=== PATIENT | female | born 1980 | race American Indian/Alaskan Native ===

== ENCOUNTER 2018-01-20 21:29 | Inpatient (IN) | payer OTHER ==
[2018-01-20] MEDS ORDERED: SUBLIMAZE IV PRN (22:54)
[2018-01-20] MEDS ORDERED: STADOL IV PRN (22:54)
[2018-01-20] MEDS ORDERED: LACTATED RINGERS 1,000 ML IV SCH ×2 (23:00→23:45)
[2018-01-20 23:10] LABS: Hemoglobin 12.3 gm/dl (10.1-14.3); Mean Corpuscular HGB Conc 34 % (30-34); Mean Corpuscular Hemoglobin 32 pg (28-32); Mean Corpuscular Volume 94 fl (79-97); Platelet Count 190 K/mm3 (140-440); Red Blood Count 3.85 M/mm3 (3.65-5.03); Red Cell Distribution Width 13.9 % (13.2-15.2)
[2018-01-20] MEDS ORDERED: ePHEDrine SULFATE IV PRN (23:37)
[2018-01-20] MEDS ORDERED: POLYCILLIN/NS 2 GM/100 ML 2 GM/100 ML BAG IV ONE (23:37)
[2018-01-20] MEDS ORDERED: XYLOCAINE 2% INFILTRATI ONE (23:37)
[2018-01-20] MEDS ORDERED: BRETHINE IVP PRN (23:37)
[2018-01-20] MEDS ORDERED: MINERAL OIL PO PRN (23:37)
[2018-01-20] MEDS ORDERED: BRETHINE SUB-Q PRN (23:37)
[2018-01-20] MEDS ORDERED: ZOFRAN IV PRN (23:37)
[2018-01-20] MEDS ORDERED: PITOCin/NS 30 UNIT/500ML 30 UNITS/500 ML BAG IV SCH ×2 (23:45)
[2018-01-20] MEDS ORDERED: PITOCin/NS 20 UNIT/1000ML DRIP 20 UNITS/1,000 ML BAG IV SCH (23:45)
--- NOTE | 2018-01-20 23:45 | History and Physical Report ---
History of Present Illness Date of examination: 01/20/18 Date of admission: 01/20/18 22:54 Chief complaint: SROM History of present illness: Pt is a 37yo BF EDC 01/30/18; EGA 38 4/7 weeks presents to L&D complaining of SROM clear fluid followed by irregular contractions. She received care at [facility], and course significant for cervical cerclage removal 5 days ago, however records are not available and GBS is unknown. Past History Past Medical History: no pertinent history Past Surgical History: no surgical history Social history: no significant social history, - Obstetrical History Expected Date of Delivery: 01/30/18 Actual Gestation: 38 Week(s) 5 Day(s) : 3 Medications and Allergies Allergies Allergy/AdvReac Type Severity Reaction Status Date / Time No Known Allergies Allergy Verified 01/20/18 22:57 Home Medications Medication Instructions Recorded Confirmed Last Taken Type No Known Home Medications [No 01/21/18 01/21/18 Unknown History Reported Home Medications] Active Meds: Active Medications Butorphanol Tartrate (Stadol) 2 mg IV Q2H PRN PRN Reason: Labor Pain Fentanyl (Sublimaze) 100 mcg IV Q2H PRN PRN Reason: Labor Pain Lactated Ringer's (Lactated Ringers) 1,000 mls @ 125 mls/hr IV DIRECT CHRISTOPHER Last Admin: 01/20/18 23:27 Dose: 125 mls/hr Review of Systems All systems: negative - Vital Signs Vital signs: Vital Signs Pulse BP 78 144/81 01/20/18 22:09 01/20/18 22:09 Temp Pulse Resp BP Pulse Ox 99.5 F 77 16 131/77 98 01/20/18 23:05 01/20/18 23:17 01/20/18 23:05 01/20/18 23:05 01/20/18 23:17 - Physical Exam Breasts: Positive: deferred Cardiovascular: Regular rate Lungs: Positive: Clear to auscultation Abdomen: Positive: normal appearance Genitourinary (Female): Positive: normal external genitalia Uterus: Positive: enlarged Anus/Rectum: Positive: normal perianal skin - Obstetrical FHR: category 1 Uterine Contraction Monitor Mode: External Cervical Dilatation: 1 (per nurse) Cervical Effacement Percentage: 50 (per nurse) station: -2 Uterine Contraction Pattern: Irregular Uterine Tone Measurement Phase: Contraction Uterine Contraction Intensity: Mild Results Result Diagrams: 01/20/18 22:40 All other labs normal. Assessment and Plan - Patient Problems (1) 38 weeks gestation of Onset Date: 01/20/18 Current Visit: Yes Status: Acute Plan to address problem: A: IUP @ 38 4/7 weeks PROM - stable Unknown GBS P: Admit to L&D for pitocin augmentation of labor IV Ampicillin Expectant vaginal delivery (2) PROM (premature rupture of membranes) Onset Date: 01/20/18 Current Visit: Yes Status: Acute Qualifiers: PROM onset of labor timing: onset of labor within 24 hours of rupture PROM gestational age: -third trimester Qualified Code(s): O42.013 - premature rupture of membranes, onset of labor within 24 hours of rupture, third trimester
[2018-01-20 23:51] LABS: Basophils % (Manual) 0 % (0.0-1.8); Eosinophils % (Manual) 0 % (0.0-4.3); Platelet Estimate Consistent w Auto; Total Cells Counted 100
[2018-01-21] MEDS ORDERED: AMPICILLIN/NS 1 GM/50 ML 1 GM/50 ML BAG IV SCH ×2 (04:00→08:00)
[2018-01-21] MEDS ORDERED: POLYCILLIN/NS 2 GM/100 ML 2 GM/100 ML BAG IV ONE ×2 (04:00)
[2018-01-21] MEDS ORDERED: XYLOCAINE 2% INFILTRATI ONE (06:30)
--- NOTE | 2018-01-21 06:45 | Procedure Note ---
OB Delivery Note - Delivery Date of Delivery: 01/21/18 Surgeon: KAROL TSE Estimated blood loss: 300cc - Vaginal Delivery presentation: vertex Delivery position: OA Intrapartum events: PROM->1hr before delivery, mult.variable deceleratio Delivery induction: none Delivery augmentation: pitocin Delivery monitor: external FHT, external uterine Route of delivery: Delivery placenta: spontaneous Delivery cord: nuchal cord, 3 umbilical vessels Episiotomy: none Delivery laceration: 1st degree, vaginal side wall Delivery repair: vicryl Anesthesia: local Delivery comments: Infant delivered OA and placed on Mom's chest for [id number] bonding and delayed cord clamping - Infant A at 1 minute: 7 at 5 minutes: 9 Infant Gender: Female (3136gms)
[2018-01-21] MEDS ORDERED: DULCOLAX PR PRN (06:51)
[2018-01-21] MEDS ORDERED: NORCO 5/325 PO PRN (06:51)
[2018-01-21] MEDS ORDERED: LANSINOH TP PRN (06:51)
[2018-01-21] MEDS ORDERED: PHENERGAN PR PRN (06:51)
[2018-01-21] MEDS ORDERED: BENADRYL PO PRN (06:51)
[2018-01-21] MEDS ORDERED: MILK OF MAGNESIA PO PRN (06:51)
[2018-01-21] MEDS ORDERED: PHENERGAN PO PRN (06:51)
[2018-01-21] MEDS ORDERED: TYLENOL PO PRN (06:51)
[2018-01-21] MEDS ORDERED: TUCKS PAD TP PRN (06:51)
[2018-01-21] MEDS ORDERED: ZOFRAN IV PRN (06:51)
[2018-01-21] MEDS ORDERED: SODIUM CHLORIDE FLUSH SYRINGE 10 ML IV NR (07:00)
[2018-01-21] MEDS ORDERED: PITOCin/NS 20 UNIT/1000ML DRIP 20 UNITS/1,000 ML BAG IV SCH (07:00)
[2018-01-21] MEDS: MOTRIN PO SCH ×3 (07:40→21:31)
[2018-01-21] MEDS: FEOSOL PO SCH ×2 (10:28→21:29)
[2018-01-21] MEDS: COLACE PO SCH ×2 (10:28→21:29)
[2018-01-21] MEDS: PRENATAL VITAMIN PO SCH (10:28)
[2018-01-21 19:40] LABS: Hematocrit 29.9 % (30.3-42.9); Hemoglobin 10.3 gm/dl (10.1-14.3)
[2018-01-22] MEDS ORDERED: M-M-R II VACCINE SUB-Q ONE (06:00)
[2018-01-22] MEDS ORDERED: BOOSTRIX IM ONE (06:00)
[2018-01-22] MEDS: MOTRIN PO SCH (06:22)
--- NOTE | 2018-01-22 08:05 | Progress Note ---
Assessment and Plan - Patient Problems (1) 38 weeks gestation of Onset Date: 01/20/18 Current Visit: Yes Status: Resolved (2) PROM (premature rupture of membranes) Onset Date: 01/20/18 Current Visit: Yes Status: Resolved Qualifiers: PROM onset of labor timing: onset of labor within 24 hours of rupture PROM gestational age: -third trimester Qualified Code(s): O42.013 - premature rupture of membranes, onset of labor within 24 hours of rupture, third trimester (3) (normal spontaneous vaginal delivery) Onset Date: 01/22/18 Current Visit: Yes Status: Resolved Plan to address problem: A: s/p - PPD #1 Doing well Asymptomatic anemia - stable P: Pt desires to go home today (4) Acute blood loss anemia Onset Date: 01/22/18 Current Visit: Yes Status: Resolved Subjective - Subjective Date of service: 01/22/18 Principal diagnosis: s/p - PPD #1 Interval history: Pt is feeling well without complaints. Bleeding improved. Patient reports: appetite normal, voiding normally, pain well controlled, flatus , ambulating normally, no dizzy ambulation, no nauseated [place]: doing well, nursing well, bottle feeding Objective - Vital Signs Latest vital signs: Vital Signs Temp Pulse Resp BP BP Pulse Ox 01/22/18 00:46 98.2 F 77 20 123/77 100 01/21/18 15:50 98.7 F 98 H 20 111/69 01/21/18 11:15 97.1 F L 86 20 117/75 01/21/18 08:40 20 01/21/18 08:30 98.3 F 85 20 118/76 100 Intake and Output 01/21/18 01/22/18 01/22/18 22:59 06:59 14:59 Intake Total 600 360 Output Total 400 Balance 200 360 Intake: Oral 600 360 Output: Urine 400 Void 400 Other: Total, Intake Amount 240 120 Total, Output Amount 400 # Voids Void 1 1 - Exam Breasts: Present: deferred Cardiovascular: Present: Regular rate Lungs: Present: Clear to auscultation Abdomen: Present: normal appearance, soft Uterus: Present: normal, firm, fundal height below umbilicus Extremities: Present: normal - Labs Labs: Abnormal lab results 01/21/18 Range/Units 19:00 Hct 29.9 L D (30.3-42.9) % Laboratory Tests 01/20/18 01/20/18 01/20/18 22:40 22:40 22:40 WBC 8.3 RBC 3.85 Hgb 12.3 Hct 36.0 MCV 94 MCH 32 MCHC 34 RDW 13.9 Plt Count 190 Add Manual Diff Complete Total Counted 100 Seg Neuts % (Manual) 75.0 H Band Neutrophils % 0 Lymphocytes % (Manual) 19.0 Reactive Lymphs % (Man) 0 Monocytes % (Manual) 6.0 Eosinophils % (Manual) 0 Basophils % (Manual) 0 Metamyelocytes % 0 Myelocytes % 0 Promyelocytes % 0 Blast Cells % 0 Nucleated RBC % Not Reportable Seg Neutrophils # Man 6.2 Band Neutrophils # 0.0 Lymphocytes # (Manual) 1.6 Abs React Lymphs (Man) 0.0 Monocytes # (Manual) 0.5 Eosinophils # (Manual) 0.0 Basophils # (Manual) 0.0 Metamyelocytes # 0.0 Myelocytes # 0.0 Promyelocytes # 0.0 Blast Cells # 0.0 WBC Morphology Not Reportable Hypersegmented Neuts Not Reportable Hyposegmented Neuts Not Reportable Hypogranular Neuts Not Reportable Smudge Cells Not Reportable Toxic Granulation Not Reportable Toxic Vacuolation Not Reportable Dohle Bodies Not Reportable Pelger-Huet Anomaly Not Reportable Adam Rods Not Reportable Platelet Estimate Consistent w auto Clumped Platelets Not Reportable Plt Clumps, EDTA Not Reportable Large Platelets Not Reportable Giant Platelets Not Reportable Platelet Satelliting Not Reportable Plt Morphology Comment Not Reportable RBC Morphology Not Reportable Dimorphic RBCs Not Reportable Polychromasia Not Reportable Hypochromasia Not Reportable Poikilocytosis Not Reportable Anisocytosis Not Reportable Microcytosis Not Reportable Macrocytosis Not Reportable Spherocytes Not Reportable Pappenheimer Bodies Not Reportable Sickle Cells Not Reportable Target Cells Not Reportable Tear Drop Cells Not Reportable Ovalocytes Not Reportable Helmet Cells Not Reportable [place] Bodies Not Reportable [place] Rings Not Reportable [place] Cells Not Reportable Bite Cells Not Reportable Crenated Cell Not Reportable Elliptocytes Not Reportable Acanthocytes (Spur) Not Reportable Rouleaux Not Reportable Hemoglobin C Crystals Not Reportable Schistocytes Not Reportable Malaria parasites Not Reportable Omar Bodies Not Reportable Hem Pathologist Commnt No RPR Nonreactive Hep Bs Antigen HIV 1&2 Antibody Rapid HIV P24 Antigen Rubella IgG Antibody Non-immune Blood Type Antibody Screen 01/20/18 01/20/18 01/20/18 22:40 22:40 22:40 WBC RBC Hgb Hct MCV MCH MCHC RDW Plt Count Add Manual Diff Total Counted Seg Neuts % (Manual) Band Neutrophils % Lymphocytes % (Manual) Reactive Lymphs % (Man) Monocytes % (Manual) Eosinophils % (Manual) Basophils % (Manual) Metamyelocytes % Myelocytes % Promyelocytes % Blast Cells % Nucleated RBC % Seg Neutrophils # Man Band Neutrophils # Lymphocytes # (Manual) Abs React Lymphs (Man) Monocytes # (Manual) Eosinophils # (Manual) Basophils # (Manual) Metamyelocytes # Myelocytes # Promyelocytes # Blast Cells # WBC Morphology Hypersegmented Neuts Hyposegmented Neuts Hypogranular Neuts Smudge Cells Toxic Granulation Toxic Vacuolation Dohle Bodies Pelger-Huet Anomaly Adam Rods Platelet Estimate Clumped Platelets Plt Clumps, EDTA Large Platelets Giant Platelets Platelet Satelliting Plt Morphology Comment RBC Morphology Dimorphic RBCs Polychromasia Hypochromasia Poikilocytosis Anisocytosis Microcytosis Macrocytosis Spherocytes Pappenheimer Bodies Sickle Cells Target Cells Tear Drop Cells Ovalocytes Helmet Cells [place]icks[place]-Dupo Bodies [place] Rings [place] Cells Bite Cells Crenated Cell Elliptocytes Acanthocytes (Spur) Rouleaux Hemoglobin C Crystals Schistocytes Malaria parasites Omar Bodies Hem Pathologist Commnt RPR Hep Bs Antigen Non-reactive HIV 1&2 Antibody Rapid Non react HIV P24 Antigen Non react Rubella IgG Antibody Blood Type O POSITIVE Antibody Screen Negative 01/21/18 19:00 WBC RBC Hgb 10.3 Hct 29.9 L D MCV MCH MCHC RDW Plt Count Add Manual Diff Total Counted Seg Neuts % (Manual) Band Neutrophils % Lymphocytes % (Manual) Reactive Lymphs % (Man) Monocytes % (Manual) Eosinophils % (Manual) Basophils % (Manual) Metamyelocytes % Myelocytes % Promyelocytes % Blast Cells % Nucleated RBC % Seg Neutrophils # Man Band Neutrophils # Lymphocytes # (Manual) Abs React Lymphs (Man) Monocytes # (Manual) Eosinophils # (Manual) Basophils # (Manual) Metamyelocytes # Myelocytes # Promyelocytes # Blast Cells # WBC Morphology Hypersegmented Neuts Hyposegmented Neuts Hypogranular Neuts Smudge Cells Toxic Granulation Toxic Vacuolation Dohle Bodies Pelger-Huet Anomaly Adam Rods Platelet Estimate Clumped Platelets Plt Clumps, EDTA Large Platelets Giant Platelets Platelet Satelliting Plt Morphology Comment RBC Morphology Dimorphic RBCs Polychromasia Hypochromasia Poikilocytosis Anisocytosis Microcytosis Macrocytosis Spherocytes Pappenheimer Bodies Sickle Cells Target Cells Tear Drop Cells Ovalocytes Helmet Cells [place]icks[place]upo Bodies [place] Rings [place] Cells Bite Cells Crenated Cell Elliptocytes Acanthocytes (Spur) Rouleaux Hemoglobin C Crystals Schistocytes Malaria parasites Omar Bodies Hem Pathologist Commnt RPR Hep Bs Antigen HIV 1&2 Antibody Rapid HIV P24 Antigen Rubella IgG Antibody Blood Type Antibody Screen
--- NOTE | 2018-01-22 08:16 | Discharge Summary ---
Providers - Providers Date of Admission: 01/20/18 22:54 Date of discharge: 01/22/18 Attending physician: KAROL TSE Primary care physician: KAROL TSE Hospitalization Reason for admission: rupture of membranes, IUP at term Delivery: Episiotomy: none Laceration: 1st degree Other procedures: none complications: none Discharge diagnosis: IUP at term delivered baby: female Hospital course: Unremarkable. Condition at discharge: Good Disposition: DC-01 TO HOME OR SELFCARE - Discharge Diagnoses (1) 38 weeks gestation of Status: Resolved (2) PROM (premature rupture of membranes) Status: Resolved Qualifiers: PROM onset of labor timing: onset of labor within 24 hours of rupture PROM gestational age: -third trimester Qualified Code(s): O42.013 - premature rupture of membranes, onset of labor within 24 hours of rupture, third trimester (3) (normal spontaneous vaginal delivery) Status: Resolved (4) Acute blood loss anemia Status: Resolved Plan - Discharge Medications Prescriptions: Ferrous Sulfate [Feosol 325 MG tab] 325 mg PO BID #60 tablet Ibuprofen [Motrin 600 MG tab] 600 mg PO Q6H #30 tablet Vit-Fe Fumar-FA [ Vitamin] 1 each PO QDAY #30 tablet - Provider Discharge Summary Activity: routine, no sex for 6 weeks, no heavy lifting 4 weeks, no strenuous exercise Diet: routine Instructions: routine Additional instructions: [] Smoking cessation referral if applicable(refer to patient education folder for contact #) [] Refer to [facility] Call your doctor immediately for: * Fever > 100.5 * Heavy vaginal bleeding ( >1 pad per hour) * Severe persistent headache * Shortness of breath * Reddened, hot, painful area to leg or breast * Drainage or odor from incision. * Keep incision clean and dry at all times and follow doctor's instructions regarding bathing/showering - Follow up plan Follow up: KAROL TSE MD [Primary Care Provider] - 6 Weeks
[2018-01-22] MEDS: FEOSOL PO SCH (10:17)
[2018-01-22] MEDS: PRENATAL VITAMIN PO SCH (10:17)
[2018-01-22] MEDS: COLACE PO SCH (10:18)
[2018-01-22 17:10] VITALS: BP 134/87
== END 2018-01-22 18:20 | disposition home or self-care (01) | DRG 775 ==
LOC: TRG 21:29 → LD 22:54 → OB 01-21 08:26
PROVIDERS: ADMIT Obstetrics & Gynecology; ATTEND Obstetrics & Gynecology
PROC: 10E0XZZ Delivery of Products of Conception, External Approach (ICD-10-PCS; principal; 2018-01-21)
PROC: 0HQ9XZZ Repair Perineum Skin, External Approach (ICD-10-PCS; 2018-01-21)
PROC: 3E0234Z Introduction of Serum, Toxoid and Vaccine into Muscle, Percutaneous Approach (ICD-10-PCS; 2018-01-22)
DX: O42.013 Preterm premature rupture of membranes, onset of labor within 24 hours of rupture, third trimester (principal); D62 Acute posthemorrhagic anemia; O76 Abnormality in fetal heart rate and rhythm complicating labor and delivery; O69.81X0 Labor and delivery complicated by cord around neck, without compression, not applicable or unspecified; O70.0 First degree perineal laceration during delivery; O99.02 Anemia complicating childbirth; Z23 Encounter for immunization; Z3A.38 38 weeks gestation of pregnancy; Z37.0 Single live birth
CPT/HCPCS: 36415; 85007; 85014; 85018; 85025; 86592; 86706; 86762; 86850; 86900; 86901; 87806; 99211; A6250; G0463; J0290; J0595; J2590; J7120